=== PATIENT | female | born 1935 | race African-American/Black ===

== ENCOUNTER 2023-02-03 04:34 | Day surgery (SDC) | payer OTHER, BC ==
[2023-02-01 13:32] VITALS: BMI 25.7
[2023-02-03] MEDS ORDERED: LIDOCAINE HCL 2% JELLY 11 ML TP ONE (11:56)
[2023-02-03] MEDS ORDERED: KETOROLAC TROMETHAMINE 30 MG/1 ML VIAL ONE (12:07)
[2023-02-03] MEDS ORDERED: ACETAMINOPHEN 1000 MG/100 ML BAG IVPB ONE (12:40)
[2023-02-03 12:51] VITALS: RESP 18
[2023-02-03 13:34] VITALS: BP 130/68; PULSE 72; TEMP 98.1
== END 2023-02-03 13:34 | disposition home or self-care (01) ==
LOC: JASU-ENDO 04:34
PROVIDERS: ATTEND Internal Medicine Gastroenterology
PROC: 06LY8CC Occlusion of Hemorrhoidal Plexus with Extraluminal Device, Via Natural or Artificial Opening Endoscopic (ICD-10-PCS; principal; 2023-02-03 10:30)
DX: K64.9 Unspecified hemorrhoids (principal)